=== PATIENT | female | born 1950 | race Caucasian/White ===

== ENCOUNTER → 2016-12-12 | Outpatient (CLI) | payer BC ==
[~2016-12-12] MED LIST: ALLEGRA PO; EFFEXOR XR150 MG PO; FISH OIL300 MG PO; LIPITOR20 MG PO; METFORMIN HCL500 M1 PO; OTEZLA30 MG PO; VITAMIN D2000 UNIT PO
--- NOTE | ~2016-12-12 | MY11 ---
[facility] A Service of [facility] RADIOLOGY TEXT RESULTS PATIENT: HIREN VIZCARRA LOCATION: [facility] : 54 UNIT #: [id number] AGE: [address]: Foreign Bernabe MD SEX: F ORDER DR: [id number] [facility] [address] [place], [place] [address] [id number] O MR#: [id number] Acc #: [id number] NAME: HIREN VIZCARRA : 1950 SEX: F STUDY DATE/TIME: 12/12/2016 10:49 UNIT: [facility] ROOM: STUDY DESCRIPTION: MY Mammogram Screening Dig [place] Attending Physician: Foreign Bernabe M.D. Ordering Physician: Foreign Bernabe M.D. Primary Care Physician: Hernandez Travis M.D. MEDICAL IMAGING REPORT This report is preliminary unless electronic signature is present EXAM Bilateral digital screening mammogram with CAD. DATE 12/10/2016 HISTORY Right breast cancer diagnosed at the age of 59 with radiation therapy. Strong family history of breast cancer, sister, grandmother, and aunts. No current complaints. COMPARISON Bilateral screening mammogram 12/11/2015, 10/31/2014. Right breast diagnostic mammogram 05/06/2014. FINDINGS CC and MLO views were obtained of each breast and true ML views obtained of the right breast. The study was reviewed with an FDA-approved CAD device and performed with digital technique. Scattered fibroglandular densities are present bilaterally. There is overall fibronodular pattern of each breast. There is architectural distortion within the posterior third of the right breast, slightly toward midline on the CC view which appears unchanged consistent with postoperative scarring. No nonsurgical architectural distortion is seen. No mass lesion is evident. No abnormal skin thickening or nipple retraction is identified. Benign vascular calcifications and round calcifications are present. IMPRESSION BIRADS 2. Benign findings. Routine screening mammogram recommended in 1 year. [facility] A Service of [facility] RADIOLOGY TEXT RESULTS PATIENT: HIREN VIZCARRA LOCATION: [facility] : 54 UNIT #: [id number] AGE: [address]: Foreign Bernabe MD SEX: F ORDER DR: Patients over the age of 40 are entered into a reminder system with target due date for the next mammogram. A result letter will also be sent to the patient. BIRADS: 2 Benign finding. Dictated by... Danay Thomas M.D. THIS IS AN ELECTRONICALLY VERIFIED REPORT Danay Thomas M.D. at 12/15/2016 8:30 AM [facility]/mily TD: 12/12/2016 13:57 JOB #: [id number] MEDICAL IMAGING REPORT Page 1 of 1 COPY
== END | disposition home or self-care (01) ==
LOC: CWCC 10:26
DX: Z12.31 Encounter for screening mammogram for malignant neoplasm of breast (principal); Z85.3 Personal history of malignant neoplasm of breast; Z80.3 Family history of malignant neoplasm of breast
CPT/HCPCS: G0202

== ENCOUNTER → 2017-01-17 | Outpatient (CLI) | payer MEDICARE, BC ==
--- NOTE | ~2017-01-17 | BD1 ---
[facility] A Service of [facility] RADIOLOGY TEXT RESULTS PATIENT: HIREN VIZCARRA LOCATION: [facility] : 54 UNIT #: [id number] AGE: [address]: Hernandez Travis MD SEX: F ORDER DR: [id number] [address] [address] [id number] O MR#: [id number] Acc #: [id number] NAME: HIREN VIZCARRA : 1950 SEX: F STUDY DATE/TIME: 01/17/2017 10:52 UNIT: [facility] ROOM: STUDY DESCRIPTION: BD Dexa Bone Dens 1+ Site Attending Physician: Hernandez Travis M.D. Referring Physician: Hernandez Travis M.D. Ordering Physician: Hernandez Travis M.D. Primary Care Physician: Hernandez Travis M.D. MEDICAL IMAGING REPORT This report is preliminary unless electronic signature is present. EXAM DEXA scan 01/17/2017 HISTORY Status post menopause with no hormone replacement therapy. Osteopenia. Breast carcinoma, radiation therapy and chemotherapy. Arthritis and diabetes. Hypertension with blood pressure medication. FINDINGS Bone mineral density in the lumbar spine from L1-L4 is 0.942 g/cm2 which is 2 standard deviations below the mean when compared to the young adult reference population which is characteristic of osteopenia. This is 0.8 standard deviations below the mean when compared to the age-matched population. Bone mineral density in the left femoral neck was 0.797 g/cm2 which is 1.7 standard deviations below the mean when compared to the young adult reference population which is characteristic of osteopenia. This is 0.5 standard deviations below the mean when compared to the age-matched population. Bone mineral density in the right femoral neck was 0.813 g/cm2 which is 1.6 standard deviations below the mean when compared to the young adult reference population which is characteristic of osteopenia. This is 0.4 standard deviations below the mean when compared to the age-matched population. IMPRESSION Bone mineral density in the lumbar spine and the hips bilaterally characteristic of osteopenia. Dictated by... Niles Brunner M.D. THIS IS AN ELECTRONICALLY VERIFIED REPORT [facility] A Service of [facility] RADIOLOGY TEXT RESULTS PATIENT: HIREN VIZCARRA LOCATION: [facility] : 54 UNIT #: [id number] AGE: [address]: Hernandez Travis MD SEX: F ORDER DR: Niles Brunner M.D. at 01/18/2017 8:20 AM [facility]/donn TD: 01/17/2017 15:01 JOB #: [id number] MEDICAL IMAGING REPORT Page 1 of 1
== END | disposition home or self-care (01) ==
LOC: CWCC 10:30 → SRAD 10:36
DX: Z13.820 Encounter for screening for osteoporosis (principal); C50.919 Malignant neoplasm of unspecified site of unspecified female breast; Z78.0 Asymptomatic menopausal state
CPT/HCPCS: 77080